=== PATIENT | female | born 1945 | race Caucasian/White ===

== ENCOUNTER 2024-04-02 13:29 | Observation (INO) | payer MEDICARE ==
--- NOTE | 2024-04-02 14:09 | ED ---
General Adult HPI - General Stated complaint: AMS Time Seen by Provider: 04/02/24 13:30 Source: patient, RN notes reviewed, old records reviewed - History of Present Illness Initial comments: This is a 78-year-old female who presents to the emergency room with her son. I had to see the patient in the waiting room because there were no beds available. Patient complained that she has been getting weaker over the last few days son complains that she is getting more altered over the last few days she is getting confused thinks her is at home with her but he is in the hospital. She also was not aware of where they were going. Patient denies any pain patient denies fever chills patient denies nausea vomiting or diarrhea. - Related Data Home Medications Medication Instructions Recorded Confirmed Aspirin EC [Ecotrin] 81 mg PO HS 06/13/13 06/13/13 Benazepril [Lotensin] 10 mg PO HS 06/13/13 06/13/13 Levothyroxine Sodium [Synthroid] 50 mcg PO DAILY 06/13/13 06/13/13 Metoprolol Tartrate [Lopressor] 50 mg PO BID 06/13/13 06/13/13 Pantoprazole Sodium 40 mg PO DAILY 06/13/13 06/13/13 Pravastatin Sodium [Pravachol] 40 mg PO DAILY 06/13/13 06/13/13 Sertraline HCl [Zoloft] 50 mg PO DAILY 06/13/13 06/13/13 Warfarin Sodium [Coumadin] 6 mg PO DAILY 06/13/13 06/13/13 hydroCHLOROthiazide [Hydrodiuril] 25 mg PO BID 06/13/13 06/13/13 Previous Rx's Medication Instructions Recorded Hydrocodone/Acetaminophen [[place] 1 each PO Q6HR PRN #30 tab 06/13/13 5-325] Ibuprofen [Motrin] 600 mg PO Q8HR PRN #30 tab 03/26/24 Allergies Allergy/AdvReac Type Severity Reaction Status Date / Time banana Allergy Swelling Verified 04/02/24 14:15 Sulfa (Sulfonamide Allergy Swelling Verified 04/02/24 14:15 Antibiotics) Review of Systems ROS Statement: Those systems with pertinent positive or pertinent negative responses have been documented in the HPI. ROS Other: All systems not noted in ROS Statement are negative. Past Medical History Past Medical History: Atrial Fibrillation, Hyperlipidemia, Hypertension, Thyroid Disorder Additional Past Medical History / Comment(s): SKIN CANCER History of Any Multi-Drug Resistant Organisms: C-DIFF Date of last positivie culture/infection: unsure MDRO Source:: stool Past Surgical History: Hysterectomy Additional Past Surgical History / Comment(s): THYROIDECTOMY PARTIAL, SKIN CANCER REMOVAL Past Psychological History: No Psychological Hx Reported Smoking Status: Former smoker Past Alcohol Use History: Occasional Past Drug Use History: None Reported General Exam - General Exam Comments Initial Comments: GENERAL: Patient is well-developed and well-nourished. Patient is nontoxic and well- hydrated and is in mild distress. ENT: Neck is soft and supple. No significant lymphadenopathy is noted. Oropharynx is clear. Moist mucous membranes. Neck has full range of motion without eliciting any pain. EYES: The sclera were anicteric and conjunctiva were pink and moist. Extraocular movements were intact and pupils were equal round and reactive to light. Eyelids were unremarkable. PULMONARY: Unlabored respirations. Good breath sounds bilaterally. No audible rales rhonchi or wheezing was noted. CARDIOVASCULAR: There is a regular rate and rhythm without any murmurs gallops or rubs. ABDOMEN: Soft and nontender with normal bowel sounds. SKIN: Skin is clear with no lesions or rashes and otherwise unremarkable. NEUROLOGIC: Patient is alert and oriented x x 2. Cranial nerves II through XII are grossly intact. Motor and sensory are also intact. Normal speech, volume and content. Symmetrical smile. MUSCULOSKELETAL: Normal extremities with adequate strength and full range of motion. LYMPHATICS: No significant lymphadenopathy is noted PSYCHIATRIC: Normal psychiatric evaluation. Course Vital Signs 04/02/24 14:10 Temperature 97.8 F Pulse Rate 95 Respiratory 16 Rate Blood Pressure 148/92 O2 Sat by Pulse 98 Oximetry Medical Decision Making - Medical Decision Making Interpreted by myself. EKG shows atrial fibrillation with rapid ventricular response of 105 bpm QRS is 85 QT interval 339 QTc is 400. Patient's EKG shows no ST segment elevation or depressions Was pt. sent in by a medical professional or institution (, [facility], PATIENT FINANCIAL SERVICES MANAGER, urgent care, hospital, or correction...) When possible be specific @ -No Did you speak to anyone other than the patient for history (EMS, parent, family, police, friend...)? What history was obtained from this source @ -No Did you review nursing and triage notes (agree or disagree)? Why? @ -I reviewed and agree with nursing and triage notes Were old charts reviewed (outside hosp., previous admission, EMS record, old EKG, old radiological studies, urgent care reports/EKG's, correction records)? Report findings @ -No old charts were reviewed Differential Diagnosis? @ -Differential Altered Mental Status: Hypoglycemia, DKA, hypercapnia, ETOH, overdose, CO poisoning, trauma, myxedema coma, HTN encephalopathy, infection, encephalitis, psychosis, intercranial hemorrhage, hepatic encephalopathy, meningitis, CVA, this is not meant to be an all-inclusive list EKG interpreted by me (3pts min.). @ -As above X-rays interpreted by me (1pt min.). @ -Chest x-ray shows no acute CT interpreted by me (1pt min.). @ -CT of the brain shows no acute abnormality U/S interpreted by me (1pt. min.). @ -None done What testing was considered but not performed or refused? (CT, X-rays, U/S, labs)? Why? @ -None What meds were considered but not given or refused? Why? @ -None Did you discuss the management of the patient with other professionals (professionals i.e. , PA, PATIENT FINANCIAL SERVICES MANAGER, lab, RT, psych nurse, social work coordinator, ivory polisher, teacher, ambulance officer, telephonic case manager)? Give summary @ -Spoke with sound physicians agreed to admit the patient Was smoking cessation discussed for >3mins.? @ -No Was critical care preformed (if so, how long)? @ -No Were there social determinants of health that impacted care today? How? (Homelessness, low income, unemployed, alcoholism, drug addiction, transportation, low edu. Level, literacy, decrease access to med. care, custodial, rehab)? @ -No Was there de-escalation of care discussed even if they declined (Discuss DNR or withdrawal of care, Hospice)? DNR status @ -No What co-morbidities impacted this encounter? (DM, HTN, Smoking, COPD, CAD, Cancer, CVA, ARF, Chemo, Hep., AIDS, mental health diagnosis, sleep apnea, morbid obesity)? @ -None Was patient admitted / discharged? Hospital course, mention meds given and route, prescriptions, significant lab abnormalities, going to OR and other pertinent info. @ -Patient continued to be altered in the emergency department and son stated that she would be too unstable at home because she has fallen multiple times her humerus fracture was more displaced than it was previously and I will consult Ortho Undiagnosed new problem with uncertain prognosis? @ -No Drug Therapy requiring intensive monitoring for toxicity (Heparin, Nitro, Insulin, Cardizem)? @ -No Were any procedures done? @ -No Diagnosis/symptom? @ -Altered mental status Acute, or Chronic, or Acute on Chronic? @ -Acute Uncomplicated (without systemic symptoms) or Complicated (systemic symptoms)? @ -Complicated Side effects of treatment? @ -No Exacerbation, Progression, or Severe Exacerbation? @ -No Poses a threat to life or bodily function? How? (Chest pain, [place], [place], pneumonia, PE, COPD, DKA, ARF, appy, cholecystitis, CVA, Diverticulitis, Homicidal, Suicidal, threat to staff... and all critical care pts) @ -Yes if patient were discharged home she could continue to fall and cause significant injury Diagnosis/symptom? @ -Humerus fracture Acute, or Chronic, or Acute on Chronic? @ -Acute Uncomplicated (without systemic symptoms) or Complicated (systemic symptoms)? @ -Default Side effects of treatment? @ -None Exacerbation, Progression, or Severe Exacerbation] @ -No Poses a threat to life or bodily function? @ -No - Lab Data Result diagrams: 04/02/24 14:32 04/02/24 14:32 Lab Results 04/02/24 04/02/24 04/02/24 Range/Units 14:32 14:32 14:32 WBC 8.2 (3.8-10.6) k/uL RBC 3.08 L (3.80-5.40) m/uL Hgb 10.4 L (11.4-16.0) gm/dL Hct 32.1 L (34.0-46.0) % MCV 104.1 H (80.0-100.0) fL MCH 33.7 (25.0-35.0) pg MCHC 32.3 (31.0-37.0) g/dL RDW 15.2 (11.5-15.5) % Plt Count 385 (150-450) k/uL MPV 8.0 Neutrophils % 83 % Lymphocytes % 10 % Monocytes % 4 % Eosinophils % 2 % Basophils % 0 % Neutrophils # 6.8 (1.3-7.7) k/uL Lymphocytes # 0.8 L (1.0-4.8) k/uL Monocytes # 0.3 (0-1.0) k/uL Eosinophils # 0.2 (0-0.7) k/uL Basophils # 0.0 (0-0.2) k/uL Hypochromasia Slight Macrocytosis Moderate PT 12.9 H (10.0-12.5) sec INR 1.2 H (<1.2) APTT 25.2 (22.0-30.0) sec Sodium 140 (137-145) mmol/L Potassium 4.4 (3.5-5.1) mmol/L Chloride 107 (98-107) mmol/L Carbon Dioxide 22 (22-30) mmol/L Anion Gap 11 mmol/L BUN 37 H (7-17) mg/dL Creatinine 0.87 (0.52-1.04) mg/dL Est GFR (CKD-EPI)AfAm 74 (>60 ml/min/1.73 sqM) Est GFR (CKD-EPI)NonAf 64 (>60 ml/min/1.73 sqM) Glucose 95 (74-99) mg/dL Calcium 9.3 (8.4-10.2) mg/dL Total Bilirubin 1.8 H (0.2-1.3) mg/dL AST 29 (14-36) U/L ALT 16 (4-34) U/L Alkaline Phosphatase 90 (38-126) U/L Troponin I (0.000-0.034) ng/mL Total Protein 6.4 (6.3-8.2) g/dL Albumin 4.1 (3.5-5.0) g/dL Urine Color Urine Appearance (Clear) Urine pH (5.0-8.0) Ur Specific [place] (1.001-1.035) Urine Protein (Negative) Urine Glucose (UA) (Negative) Urine Ketones (Negative) Urine Blood (Negative) Urine Nitrite (Negative) Urine Bilirubin (Negative) Urine Urobilinogen (<2.0) mg/dL Ur Leukocyte Esterase (Negative) Urine RBC (0-5) /hpf Urine WBC (0-5) /hpf Ur Squamous Epith Cells (0-4) /hpf Urine Mucus (None) /hpf Urine Opiates Screen (NotDetected) Ur Oxycodone Screen (NotDetected) Urine Methadone Screen (NotDetected) Ur Barbiturates Screen (NotDetected) U Tricyclic Antidepress (NotDetected) Ur Phencyclidine Scrn (NotDetected) Ur Amphetamines Screen (NotDetected) U Methamphetamines Scrn (NotDetected) U Benzodiazepines Scrn (NotDetected) Urine Cocaine Screen (NotDetected) U Marijuana (THC) Screen (NotDetected) Influenza Type A (PCR) (Not Detectd) Influenza Type B (PCR) (Not Detectd) RSV (PCR) (Not Detectd) SARS-CoV-2 (PCR) (Not Detectd) 04/02/24 04/02/24 04/02/24 Range/Units 14:32 14:32 16:15 WBC (3.8-10.6) k/uL RBC (3.80-5.40) m/uL Hgb (11.4-16.0) gm/dL Hct (34.0-46.0) % MCV (80.0-100.0) fL MCH (25.0-35.0) pg MCHC (31.0-37.0) g/dL RDW (11.5-15.5) % Plt Count (150-450) k/uL MPV Neutrophils % % Lymphocytes % % Monocytes % % Eosinophils % % Basophils % % Neutrophils # (1.3-7.7) k/uL Lymphocytes # (1.0-4.8) k/uL Monocytes # (0-1.0) k/uL Eosinophils # (0-0.7) k/uL Basophils # (0-0.2) k/uL Hypochromasia Macrocytosis PT (10.0-12.5) sec INR (<1.2) APTT (22.0-30.0) sec Sodium (137-145) mmol/L Potassium (3.5-5.1) mmol/L Chloride (98-107) mmol/L Carbon Dioxide (22-30) mmol/L Anion Gap mmol/L BUN (7-17) mg/dL Creatinine (0.52-1.04) mg/dL Est GFR (CKD-EPI)AfAm (>60 ml/min/1.73 sqM) Est GFR (CKD-EPI)NonAf (>60 ml/min/1.73 sqM) Glucose (74-99) mg/dL Calcium (8.4-10.2) mg/dL Total Bilirubin (0.2-1.3) mg/dL AST (14-36) U/L ALT (4-34) U/L Alkaline Phosphatase (38-126) U/L Troponin I <0.012 (0.000-0.034) ng/mL Total Protein (6.3-8.2) g/dL Albumin (3.5-5.0) g/dL Urine Color Yellow Urine Appearance Clear (Clear) Urine pH 5.5 (5.0-8.0) Ur Specific [place] 1.031 (1.001-1.035) Urine Protein 1+ H (Negative) Urine Glucose (UA) Negative (Negative) Urine Ketones Negative (Negative) Urine Blood Negative (Negative) Urine Nitrite Negative (Negative) Urine Bilirubin Negative (Negative) Urine Urobilinogen <2.0 (<2.0) mg/dL Ur Leukocyte Esterase Negative (Negative) Urine RBC 3 (0-5) /hpf Urine WBC 2 (0-5) /hpf Ur Squamous Epith Cells 1 (0-4) /hpf Urine Mucus Rare H (None) /hpf Urine Opiates Screen Not Detected (NotDetected) Ur Oxycodone Screen Not Detected (NotDetected) Urine Methadone Screen Not Detected (NotDetected) Ur Barbiturates Screen Not Detected (NotDetected) U Tricyclic Antidepress Not Detected (NotDetected) Ur Phencyclidine Scrn Not Detected (NotDetected) Ur Amphetamines Screen Not Detected (NotDetected) U Methamphetamines Scrn Not Detected (NotDetected) U Benzodiazepines Scrn Not Detected (NotDetected) Urine Cocaine Screen Not Detected (NotDetected) U Marijuana (THC) Screen Not Detected (NotDetected) Influenza Type A (PCR) Not Detected (Not Detectd) Influenza Type B (PCR) Not Detected (Not Detectd) RSV (PCR) Not Detected (Not Detectd) SARS-CoV-2 (PCR) Not Detected (Not Detectd) Disposition Clinical Impression: Altered mental status, Humerus fracture Disposition: ADMITTED IP TO THIS HOSP Referrals: Bryan Cavazos MD [Primary Care Provider] - 1-2 days Time of Disposition: 19:32
--- NOTE | 2024-04-02 15:03 | XR ---
EXAMINATION TYPE: XR chest 2V DATE OF EXAM: 04/02/2024 2:57 PM COMPARISON: Chest radiographs from 04/15/2013, right humerus/scapula radiograph 03/21/2024, TECHNIQUE: XR chest 2V Frontal and lateral views of the chest. CLINICAL INDICATION:Female, 78 years old with history of altered mental status; FINDINGS: Lungs/Pleura: There is no evidence of pleural effusion, focal consolidation, or pneumothorax. Linear atelectasis within the left lower lung. Pulmonary vascularity: Unremarkable. Heart/mediastinum: Cardiomediastinal silhouette is enlarged and stable. Musculoskeletal: Anterior wedge compression deformity of the lower thoracic spine. Increased displace ment of known right proximal humeral surgical neck fracture with extension to the greater tuberosity. IMPRESSION: 1. No acute cardiopulmonary disease/process. 2. Age-indeterminate anterior wedge compression deformity of the lower thoracic spine. Correlate wit h point tenderness. 3. Increased displacement of known right proximal humeral surgical neck fracture. [facility], , 04/02/2024 3:01 PM
[2024-04-02 15:11] LABS: Basophils % (A) 0 %; Eosinophils # (A) 0.2 k/uL (0-0.7); Eosinophils % (A) 2 %; HCT 32.1 % (34.0-46.0); HGB 10.4 gm/dL (11.4-16.0); Hypochromasia Slight; Lymphocytes # (A) 0.8 k/uL (1.0-4.8); Lymphocytes % (A) 10 %; MCH 33.7 pg (25.0-35.0); MCHC 32.3 g/dL (31.0-37.0); MCV 104.1 fL (80.0-100.0); Macrocytosis Moderate; Monocytes # (A) 0.3 k/uL (0-1.0); Monocytes % (A) 4 %; Neutrophils # (A) 6.8 k/uL (1.3-7.7); Neutrophils % (A) 83 %; Platelet Count 385 k/uL (150-450); RBC 3.08 m/uL (3.80-5.40); RDW 15.2 % (11.5-15.5); WBC 8.2 k/uL (3.8-10.6)
[2024-04-02 15:20] LABS: ALT 16 U/L (4-34); AST 29 U/L (14-36); African American GFR (CKD) 74 (>60 ml/min/1.73 sqM); Albumin 4.1 g/dL (3.5-5.0); Alkaline Phosphatase 90 U/L (38-126); Anion Gap 11 mmol/L; Blood Urea Nitrogen 37 mg/dL (7-17); Calcium 9.3 mg/dL (8.4-10.2); Carbon Dioxide 22 mmol/L (22-30); Chloride 107 mmol/L (98-107); Glucose 95 mg/dL (74-99); Non-African American GFR(CKD) 64 (>60 ml/min/1.73 sqM); Potassium 4.4 mmol/L (3.5-5.1); Sodium 140 mmol/L (137-145); Total Bilirubin 1.8 mg/dL (0.2-1.3); Total Protein 6.4 g/dL (6.3-8.2)
[2024-04-02 15:21] LABS: INR 1.2 (<1.2); Partial Thromboplastin Time 25.2 sec (22.0-30.0); Prothrombin Time 12.9 sec (10.0-12.5)
[2024-04-02 15:45] LABS: Influenza A Not Detected (Not Detectd); Influenza B Not Detected (Not Detectd); RSV Not Detected (Not Detectd)
[2024-04-02] MEDS: SODIUM CHLORIDE 0.9% 1,000 ML IV ONE ×2 (16:33→20:12)
[2024-04-02 17:01] LABS: Appearance,Urine Clear (Clear); Bilirubin,Urine Negative (Negative); Blood,Urine Negative (Negative); Color,Urine Yellow; Glucose,Urine (UA) Negative (Negative); Ketones,Urine Negative (Negative); Leukocyte Esterase,Urine Negative (Negative); Mucus,Urine Rare /hpf; Nitrite,Urine Negative (Negative); PH, Urine 5.5 (5.0-8.0); Protein,Urine 1+ (Negative); RBC,Urine 3 /hpf (0-5); Specific Gravity,Urine 1.031 (1.001-1.035); Squamous Epithelial Cell,Urine 1 /hpf (0-4); Urobilinogen,Urine <2.0 mg/dL (<2.0); WBC,Urine 2 /hpf (0-5)
[2024-04-02 17:07] LABS: Amphetamine Screen,Urine Not Detected (NotDetected); Barbiturate Screen,Urine Not Detected (NotDetected); Benzodiazepines Screen,Urine Not Detected (NotDetected); Cocaine Screen,Urine Not Detected (NotDetected); Methadone Screen, Urine Not Detected (NotDetected); Opiate Screen,Urine Not Detected (NotDetected); Oxycodone Screen, Urine Not Detected (NotDetected); Phencyclidine Screen,Urine Not Detected (NotDetected); Tricyclic Antidepressant,Urine Not Detected (NotDetected); Urn Cannabinoid Scrn Not Detected (NotDetected)
--- NOTE | 2024-04-02 19:07 | CT ---
EXAMINATION TYPE: CT brain wo con DATE OF EXAM: 04/02/2024 6:48 PM COMPARISON: None. CLINICAL INDICATION: Female, 78 years old with history of Altered mental status, weakness, ams, recen t fall TECHNIQUE: Brain: Axial CT images of the brain were obtained with coronal and sagittal reformats created and rev iewed. Contrast used: None. Oral contrast used: None. CT DLP: 1096.4 mGycm, Automated exposure control for dose reduction was used. FINDINGS: Brain: Extra-axial spaces: No abnormal extra-axial fluid collections. Ventricular system: Within normal limits Cerebral parenchyma: No acute intraparenchymal hemorrhage or mass effect. The wilson-white junction is well differentiated. Cerebellum: Unremarkable. Mass effect: No evidence of midline shift. Intracranial vasculature: unremarkable Soft tissues: Normal. Calvarium/osseous structures: No depressed skull fracture. Paranasal sinuses and mastoid air cells: Mild scattered paranasal sinus disease. Visualized orbits: Orbital contents are intact. There is subcutaneous gas in the head myofascial planes of the left head head and anterior face. No f racture definitely visualized in the [id number]. IMPRESSION: 1. No acute intracranial process. 2. Soft tissue subcutaneous gas throughout the head most pronounced on the left. Etiology unclear no fracture definitely visualized in the [id number]. [facility], , 04/02/2024 7:05 PM
[2024-04-02 22:10] LABS: African American GFR (CKD) >90 (>60 ml/min/1.73 sqM); Anion Gap 11 mmol/L; Blood Urea Nitrogen 31 mg/dL (7-17); Calcium 9.4 mg/dL (8.4-10.2); Carbon Dioxide 16 mmol/L (22-30); Chloride 114 mmol/L (98-107); Glucose 83 mg/dL (74-99); Non-African American GFR(CKD) 84 (>60 ml/min/1.73 sqM); Potassium 5.3 mmol/L (3.5-5.1); Sodium 141 mmol/L (137-145)
[2024-04-02] MEDS ORDERED: NALOXONE 0.4 MG/ML 1 ML VIAL IVP PRN (23:19)
--- NOTE | 2024-04-02 23:27 | P.HPIM ---
History of Present Illness H&P Date: 04/02/24 Patient is a 78-year-old female with of A-fib (on rivaroxaban), hyperlipidemia, hypertension, thyroid disorder here for increased weakness. Patient arrived with her son but is not at bedside during evaluation. She was recently in the emergency room on 03/22 for right humeral fracture. Per bell staff, patient's son brought the patient in due to increasing frequency of falls, confusion and weakness. They also reported that is intermittently confused. Patient was able to report that a week ago she fell on her hip and it was unwitnessed but she did not hit her head. She did not seek care at the time as her pain did not have any pain or swelling. Patient was able to mention that she had a right arm injury because she fell and had a fracture. She is still wearing the sling on admission and reports that she is very much in pain that she cannot move the arm. She believes she is here because of generalized weakness. She denied fever, chills, nausea, vomiting, diarrhea, loss of consciousness, headache, changes in vision, congestion, runny nose, cough, shortness of breath, chest pain, palpitations, focal weakness, facial asymmetry, changes in speech, changes in urination, recent bleeding, recent illness, recent travel. Social history: Tobacco: Former smoker. Quit 30 years ago Alcohol: Occasional alcohol use Recreational drugs: No illicit or recreational drug history Chest x-ray on admission showed no acute cardiopulmonary process, age- indeterminate anterior wedge compression deformity of the lower thoracic spine, increased displacement of known right proximal humeral surgical neck fracture. EKG showed atrial fibrillation with a rate of [address]-T changes QTc 400. Brain CT showed no acute intracranial process, soft tissue subcutaneous gas throughout the head was pronounced on the left etiology unclear.. Labs on evaluation showed WBC 8.2, hemoglobin 10.4, MCV 104, platelet count 385,000, PT 12.9, INR 1.2, PTT 25.2, sodium 140, potassium 4.4, chloride 107, bicarb 22, BUN 37, creatinine 0.87, glucose 95, calcium 9.3, total bilirubin 1.8, AST 29, ALT 16, alk phos 90, troponin less than 0.0 12, albumin 4.1. Urinalysis shows +1 protein and rare mucus. UDS negative. Cepheid 4 negative. Vitals on admission temperature 97.8 pulse rate 95 respiratory rate 16 blood pressure 148/92 O2 saturation 98% ED documentation reviewed and case discussed with ED provider. 0.9 normal saline bolus given in the ED Review of systems: Pertinent positives and negatives as discussed in HPI, a complete review of systems was performed and all other systems are negative. Physical examination: Vital signs reviewed General: non toxic, mild distress, appears at stated age, Derm: no unusual rashes/lesions, warm, bruising noted on left hip and right arm up to the shoulder from the hands Head: atraumatic, normocephalic, symmetric Eyes: EOMI, anicteric sclera, pupils equal round reactive to light ENT: Nose and ears atraumatic Neck: No cervical lymphadenopathy, trachea midline, supple Mouth: no lip lesion, mucus membranes moist Cardiovascular: S1S2 reg, no murmur Lungs: CTA bilateral, no rhonchi, no rales, no accessory muscle use Abdominal: soft, nondistended, nontender to palpation, no guarding Ext: muscle strength 5 out of 5 in distal and proximal bilateral lower extremities and left upper extremity grossly, no gross muscle atrophy, no contractures, positive dorsalis pedis pulse bilateral, +2 bilateral pitting edema, right arm placed in a sling range of motion limited by pain Neuro: CN II-XI grossly intact, no gross focal neuro deficits Psych: Alert and oriented x 3, appropriate affect and mood Assessment/Plan: 78-year-old female with altered mental status #. Acute encephalopathy, rule out other causes #. Debility -Brain CT showed no acute intracranial process, soft tissue subcutaneous gas throughout the head was pronounced on the left etiology unclear. -Chest x-ray on admission showed no acute cardiopulmonary process, age- indeterminate anterior wedge compression deformity of the lower thoracic spine, increased displacement of known right proximal humeral surgical neck fracture. -Glucose 95. UDS negative. Cepheid 4 negative. -Echocardiogram -Check TSH -Neurochecks -Fall precautions -Cardiac telemetry - PT/OT consult -monitor BMP #. A-fib with RVR -EKG showed atrial fibrillation with a rate of [address]-T changes QTc 400. -Resume home rivaroxaban -Initiate home Lopressor 50 p.o. twice daily -Cardiac telemetry #. Macrocytic anemia -Hemoglobin 10.4, MCV 104 -Check B12 and folate levels -Monitor CBC #. Right humeral neck fracture -Last seen on 03/22 for right humeral neck fracture in the ED. Proximal humeral fracture noted on humerus x-ray of the right showing partially nondisplaced fracture of surgical neck right humerus with extension into the region of the greater tuberosity. -Pain control as needed -Ortho consulted #. Right hip pain -Hip CT of the left on 03/26/2024 showed prominent soft tissue swelling and bruising along the left hip, oval high density area seen within the posterior gluteal musculature suggestive of an intramuscular hematoma and to recommended for clinical follow-up, mild left osteoarthritis, no acute osseous abnormality seen -Hip x-ray of the left showed no acute fracture or dislocation -Pain control as needed -Will monitor for now Chronic Conditions: #. Hyperlipidemia #. Hypertension #. Thyroid disorder #. Chronic leg swelling -Resume all home medications once reconciled DVT ppx: Rivaroxaban 20 mg p.o. daily GI ppx: Not indicated Dispo: The patient is admitted with an anticipated greater than 2 midnight stay for evaluation of altered mental status Discussed with: Patient Anticipated discharge place: Home Andreea Hyman MD PGY-1 IM Dictation was produced using [employer] dictation software. please excuse any grammatical, word or spelling errors. I have seen and evaluated the patient today. I Discussed the case with the resident and agree with the resident's findings I edited the assessment and plan as necessary as documented in the resident's note. Past Medical History Past Medical History: Atrial Fibrillation, Hyperlipidemia, Hypertension, Thyroid Disorder Additional Past Medical History / Comment(s): SKIN CANCER History of Any Multi-Drug Resistant Organisms: C-DIFF Date of last positivie culture/infection: unsure MDRO Source:: stool Past Surgical History: Hysterectomy Additional Past Surgical History / Comment(s): THYROIDECTOMY PARTIAL, SKIN CANCER REMOVAL Past Psychological History: No Psychological Hx Reported Smoking Status: Former smoker Past Alcohol Use History: Occasional Past Drug Use History: None Reported Medications and Allergies Home Medications Medication Instructions Recorded Confirmed Type Metoprolol Tartrate [Lopressor] 50 mg PO BID 06/13/13 04/02/24 History Ibuprofen [Motrin] 600 mg PO Q8HR PRN 04/02/24 04/02/24 History Levothyroxine Sodium [Synthroid] 88 mcg PO DAILY 04/02/24 04/02/24 History Rivaroxaban [Xarelto] 20 mg PO DAILY 04/02/24 04/02/24 History Sertraline (Unknown Strength) 100 mg PO DAILY 04/02/24 04/02/24 History Spironolactone [Aldactone] 25 mg PO DAILY 04/02/24 04/02/24 History Allergies Allergy/AdvReac Type Severity Reaction Status Date / Time banana Allergy Swelling Verified 04/02/24 19:54 Sulfa (Sulfonamide Allergy Swelling Verified 04/02/24 19:54 Antibiotics) Physical Exam Vitals: Vital Signs Temp Pulse Resp BP Pulse Ox 04/02/24 14:10 97.8 F 95 16 148/92 98 Intake and Output 04/02/24 04/02/24 04/02/24 06:59 14:59 22:59 Other: Weight 68.492 kg Results CBC & Chem 7: 04/03/24 03:19 04/03/24 03:19 Labs: Abnormal Lab Results - Last 24 Hours (Table) 04/02/24 04/02/24 04/02/24 Range/Units 14:32 14:32 14:32 RBC 3.08 L (3.80-5.40) m/uL Hgb 10.4 L (11.4-16.0) gm/dL Hct 32.1 L (34.0-46.0) % MCV 104.1 H (80.0-100.0) fL Lymphocytes # 0.8 L (1.0-4.8) k/uL PT 12.9 H (10.0-12.5) sec INR 1.2 H (<1.2) BUN 37 H (7-17) mg/dL Total Bilirubin 1.8 H (0.2-1.3) mg/dL Urine Protein (Negative) Urine Mucus (None) /hpf 04/02/24 Range/Units 16:15 RBC (3.80-5.40) m/uL Hgb (11.4-16.0) gm/dL Hct (34.0-46.0) % MCV (80.0-100.0) fL Lymphocytes # (1.0-4.8) k/uL PT (10.0-12.5) sec INR (<1.2) BUN (7-17) mg/dL Total Bilirubin (0.2-1.3) mg/dL Urine Protein 1+ H (Negative) Urine Mucus Rare H (None) /hpf
[2024-04-03] MEDS: METOPROLOL TARTRATE 50 MG TAB PO SCH (00:03)
[2024-04-03] MEDS: ACETAMINOPHEN TAB 325 MG TAB PO PRN (00:03)
[2024-04-03 03:58] LABS: African American GFR (CKD) 86 (>60 ml/min/1.73 sqM); Anion Gap 9 mmol/L; Blood Urea Nitrogen 32 mg/dL (7-17); Calcium 9.1 mg/dL (8.4-10.2); Carbon Dioxide 22 mmol/L (22-30); Chloride 109 mmol/L (98-107); Glucose 131 mg/dL (74-99); Non-African American GFR(CKD) 74 (>60 ml/min/1.73 sqM); Potassium 3.9 mmol/L (3.5-5.1); Sodium 140 mmol/L (137-145)
[2024-04-03 04:24] LABS: Basophils % (A) 0 %; Eosinophils # (A) 0.1 k/uL (0-0.7); Eosinophils % (A) 2 %; HCT 30.5 % (34.0-46.0); HGB 9.9 gm/dL (11.4-16.0); Hypochromasia Slight; Lymphocytes # (A) 0.7 k/uL (1.0-4.8); Lymphocytes % (A) 9 %; MCH 33.5 pg (25.0-35.0); MCHC 32.5 g/dL (31.0-37.0); MCV 103.1 fL (80.0-100.0); Macrocytosis Moderate; Mean Platelet Volume 8.3; Monocytes # (A) 0.3 k/uL (0-1.0); Monocytes % (A) 4 %; Neutrophils # (A) 6.8 k/uL (1.3-7.7); Neutrophils % (A) 84 %; Platelet Count 357 k/uL (150-450); RBC 2.96 m/uL (3.80-5.40); RDW 15.8 % (11.5-15.5)
[2024-04-03] MEDS: LEVOTHYROXINE 88 MCG TAB PO SCH (05:46)
[2024-04-03] MEDS: SERTRALINE 100 MG TAB PO SCH (10:25)
[2024-04-03] MEDS: SPIRONOLACTONE 25 MG TAB PO SCH (10:29)
[2024-04-03] MEDS: MORPHINE SULFATE 4 MG/ML SYRINGE IVP PRN (10:34)
--- NOTE | 2024-04-03 10:57 | P.CNOR ---
History of Present Illness - HPI Consult date: 04/03/24 History of present illness: This is a 78-year-old female who is admitted for altered mental status and multiple falls. Orthopedics is consulted due to a right humerus fracture. Patient is seen and evaluated at bedside today. Patient states that she fractured her right shoulder 1 or 2 weeks ago after a fall at home. Patient states that she has had several falls recently. Patient was seen in the emergency room on 03/21/2024 and humerus x-rays revealed a proximal right humerus fracture. Patient complains of right wrist pain today. Patient states that she has been utilizing her arm sling and she denies any numbness, weakness or tingling. Patient's past medical history significant for atrial fibrillation, hyperlipidemia, hypertension and a thyroid disorder. Review of Systems See HPI. Past Medical History Past Medical History: Atrial Fibrillation, Hyperlipidemia, Hypertension, Thyroid Disorder Additional Past Medical History / Comment(s): SKIN CANCER History of Any Multi-Drug Resistant Organisms: C-DIFF Year Discovered:: unsure MDRO Source:: stool Past Surgical History: Hysterectomy Additional Past Surgical History / Comment(s): THYROIDECTOMY PARTIAL, SKIN CANC ER REMOVAL Past Anesthesia/Blood Transfusion Reactions: No Reported Reaction Past Psychological History: No Psychological Hx Reported Smoking Status: Former smoker Past Alcohol Use History: Occasional Past Drug Use History: None Reported Medications and Allergies Home Medications Medication Instructions Recorded Confirmed Type Metoprolol Tartrate [Lopressor] 50 mg PO BID 06/13/13 04/02/24 History Ibuprofen [Motrin] 600 mg PO Q8HR PRN 04/02/24 04/02/24 History Levothyroxine Sodium [Synthroid] 88 mcg PO DAILY 04/02/24 04/02/24 History Rivaroxaban [Xarelto] 20 mg PO DAILY 04/02/24 04/02/24 History Sertraline (Unknown Strength) 100 mg PO DAILY 04/02/24 04/02/24 History Spironolactone [Aldactone] 25 mg PO DAILY 04/02/24 04/02/24 History Allergies Allergy/AdvReac Type Severity Reaction Status Date / Time banana Allergy Swelling Verified 04/02/24 19:54 Sulfa (Sulfonamide Allergy Swelling Verified 04/02/24 19:54 Antibiotics) Physical Examination On exam patient is resting comfortably in bed in no acute distress. Patient is alert and oriented 3. Right upper extremity: Skin is intact. There is ecchymosis present over the right upper arm extending to the hand. There is mild to moderate swelling of the right shoulder. Patient has tenderness to palpation over the right shoulder and over the right wrist. Patient has full motion of the right hand and some discomfort with wrist motion. Radial pulse is 2+. Capillary refill is normal at less than 2 seconds. The right upper extremity is warm and well-perfused. Sensation intact. Neurovascular status and circulatory status are intact. Results X-rays of the right shoulder dated 04/03/2024 show a stable proximal humerus fracture. X-rays of the right wrist are pending. - Labs Labs: Abnormal Lab Results - Last 24 Hours (Table) 04/02/24 04/02/24 04/02/24 Range/Units 14:32 14:32 14:32 RBC 3.08 L (3.80-5.40) m/uL Hgb 10.4 L (11.4-16.0) gm/dL Hct 32.1 L (34.0-46.0) % MCV 104.1 H (80.0-100.0) fL RDW (11.5-15.5) % Lymphocytes # 0.8 L (1.0-4.8) k/uL PT 12.9 H (10.0-12.5) sec INR 1.2 H (<1.2) Potassium (3.5-5.1) mmol/L Chloride (98-107) mmol/L Carbon Dioxide (22-30) mmol/L BUN 37 H (7-17) mg/dL Glucose (74-99) mg/dL Total Bilirubin 1.8 H (0.2-1.3) mg/dL Urine Protein (Negative) Urine Mucus (None) /hpf 04/02/24 04/02/24 04/03/24 Range/Units 16:15 21:08 03:19 RBC 2.96 L (3.80-5.40) m/uL Hgb 9.9 L (11.4-16.0) gm/dL Hct 30.5 L (34.0-46.0) % MCV 103.1 H (80.0-100.0) fL RDW 15.8 H (11.5-15.5) % Lymphocytes # 0.7 L (1.0-4.8) k/uL PT (10.0-12.5) sec INR (<1.2) Potassium 5.3 H (3.5-5.1) mmol/L Chloride 114 H (98-107) mmol/L Carbon Dioxide 16 L (22-30) mmol/L BUN 31 H (7-17) mg/dL Glucose (74-99) mg/dL Total Bilirubin (0.2-1.3) mg/dL Urine Protein 1+ H (Negative) Urine Mucus Rare H (None) /hpf 04/03/24 Range/Units 03:19 RBC (3.80-5.40) m/uL Hgb (11.4-16.0) gm/dL Hct (34.0-46.0) % MCV (80.0-100.0) fL RDW (11.5-15.5) % Lymphocytes # (1.0-4.8) k/uL PT (10.0-12.5) sec INR (<1.2) Potassium (3.5-5.1) mmol/L Chloride 109 H (98-107) mmol/L Carbon Dioxide (22-30) mmol/L BUN 32 H (7-17) mg/dL Glucose 131 H (74-99) mg/dL Total Bilirubin (0.2-1.3) mg/dL Urine Protein (Negative) Urine Mucus (None) /hpf H & H 04/02/24 04/03/24 Range/Units 14:32 03:19 Hgb 10.4 L 9.9 L (11.4-16.0) gm/dL Hct 32.1 L 30.5 L (34.0-46.0) % Coagulation 04/02/24 Range/Units 14:32 INR 1.2 H (<1.2) Result Diagrams: 04/03/24 03:19 04/03/24 03:19 Assessment and Plan (1) Closed fracture of right proximal humerus Current Visit: Yes Status: Acute Code(s): S42.201A - UNSP FRACTURE OF UPPER END OF RIGHT HUMERUS, INIT SNOMED Code(s): 34707143 (2) Fall Current Visit: No Status: Acute Code(s): W19.XXXA - UNSPECIFIED FALL, INITIAL ENCOUNTER SNOMED Code(s): 8713583 Plan: 1. Maintain arm sling to the right upper extremity. Ice as needed for swelling. Patient is to remain nonweightbearing to the right upper extremity. 2. Continue pain control. 3. X-rays of the right wrist are pending. 4. There is no surgical indication. Continue with conservative management. We will continue to follow.
--- NOTE | 2024-04-03 10:58 | XR ---
EXAMINATION TYPE: XR shoulder limited RT DATE OF EXAM: 04/03/2024 10:32 AM COMPARISON: None. CLINICAL INDICATION: Female, 78 years old with history of fracture, pain TECHNIQUE: 2 view(s) obtained. FINDINGS: The surgical neck fracture is not as well-visualized on the current examination. Greater tuberosity f racture however is evident. Humeral head articulates with the glenoid. Downward sloping acromion is n oted. IMPRESSION: 1. Persistent fracture at the greater tuberosity and surgical neck of the humerus. [facility], , 04/03/2024 10:56 AM
--- NOTE | 2024-04-03 13:00 | XR ---
EXAMINATION TYPE: XR wrist limited RT DATE OF EXAM: 04/03/2024 12:32 PM COMPARISON: Right hand 06/13/2013 CLINICAL INDICATION: Female, 78 years old with history of pain, pain TECHNIQUE: 2 view(s) obtained. FINDINGS: No acute fracture or dislocation evident. Joint spaces appear preserved. Some soft tissue swelling ma y be over the dorsum of the wrist. Follow up exams can be performed as clinically indicated There is pain at the anatomic snuff box, nuclear medicine bone scan could be performed for additional evaluation. IMPRESSION: 1. No acute osseous abnormality right wrist 2. Soft tissue swelling right wrist [facility], , 04/03/2024 12:58 PM
[2024-04-03] MEDS: RIVAROXABAN 20 MG TAB PO SCH (16:44)
--- NOTE | 2024-04-03 18:05 | P.PN ---
Subjective Progress Note Date: 04/03/24 78-year-old female with of A-fib (on rivaroxaban), hyperlipidemia, hypertension, thyroid disorder here for increased weakness. Patient arrived with her son but is not at bedside during evaluation. She was recently in the emergency room on 03/22 for right humeral fracture. Per staff command and control officer, patient's son brought the patient in due to increasing frequency of falls, confusion and weakness. They also reported that is intermittently confused. Patient was able to report that a week ago she fell on her hip and it was unwitnessed but she did not hit her head. She did not seek care at the time as her pain did not have any pain or swelling. Patient was able to mention that she had a right arm injury because she fell and had a fracture. She is still wearing the sling on admission and reports that she is very much in pain that she cannot move the arm. She believes she is here because of generalized weakness. In the ED she underwent extensive evaluation. Chest x-ray on admission showed no acute cardiopulmonary process, age- indeterminate anterior wedge compression deformity of the lower thoracic spine, increased displacement of known right proximal humeral surgical neck fracture. EKG showed atrial fibrillation with a rate of [address]-T changes QTc 400. Brain CT showed no acute intracranial process, soft tissue subcutaneous gas throughout the head was pronounced on the left etiology unclear.. Labs on evaluation showed WBC 8.2, hemoglobin 10.4, MCV 104, platelet count 385,000, PT 12.9, INR 1.2, PTT 25.2, sodium 140, potassium 4.4, chloride 107, bicarb 22, BUN 37, creatinine 0.87, glucose 95, calcium 9.3, total bilirubin 1.8, AST 29, ALT 16, alk phos 90, troponin less than 0.0 12, albumin 4.1. Urinalysis shows +1 protein and rare mucus. UDS negative. Cepheid 4 negative. Vitals on admission temperature 97.8 pulse rate 95 respiratory rate 16 blood pressure 148/92 O2 saturation 98% Patient was admitted for further workup and management. 04/03 Patient was seen and examined. Apparently AO x 4 this morning but got confused after receiving Morphine. Ortho recommends no surgical intervention. CBC and BMP significant for RBC 2.96, Hg 9.9, Hct 30.5, MCV 103.1, Cl 109, BUN 32, glu 131. B12 642. TSH 3.55. Vital signs reviewed General: non toxic, mild distress, appears at stated age, Derm: bruising noted on left hip and right arm up to the shoulder from the hands Head: atraumatic, normocephalic, symmetric Eyes: EOMI, anicteric sclera ENT: Nose and ears atraumatic Neck: No cervical lymphadenopathy, trachea midline, supple Mouth: no lip lesion, mucus membranes moist Cardiovascular: S1S2 reg, no murmur Lungs: CTA bilateral, no rhonchi, no rales, no accessory muscle use Ext: +2 bilateral pitting edema, right arm placed in a sling range of motion limited by pain Neuro: no gross focal neuro deficits Psych: Alert and oriented x 3, appropriate affect and mood #. Acute encephalopathy, rule out other causes #. Debility -Brain CT showed no acute intracranial process, soft tissue subcutaneous gas throughout the head was pronounced on the left etiology unclear. -Chest x-ray on admission showed no acute cardiopulmonary process, age- indeterminate anterior wedge compression deformity of the lower thoracic spine, increased displacement of known right proximal humeral surgical neck fracture. -Glucose 95. UDS negative. Cepheid 4 negative. -TSH and B12 within normal limits, Folate pending -Neurochecks -Fall precautions -Cardiac telemetry -PT/OT consult #. A-fib with RVR -EKG showed atrial fibrillation with a rate of [address]-T changes QTc 400. -Resume home rivaroxaban -Initiate home Lopressor 50 p.o. twice daily -Cardiac telemetry #. Macrocytic anemia -Hemoglobin 9.9, MCV 103.1 -TSH and B12 within normal limits, Folate pending -Monitor CBC #. Right humeral neck fracture -Last seen on 03/22 for right humeral neck fracture in the ED. Proximal humeral fracture noted on humerus x-ray of the right showing partially nondisplaced fracture of surgical neck right humerus with extension into the region of the greater tuberosity. -Pain control as needed -Ortho consulted, conservative management recommended #. Right hip pain -Hip CT of the left on 03/26/2024 showed prominent soft tissue swelling and bruising along the left hip, oval high density area seen within the posterior gluteal musculature suggestive of an intramuscular hematoma and to recommended for clinical follow-up, mild left osteoarthritis, no acute osseous abnormality seen -Hip x-ray of the left showed no acute fracture or dislocation -Pain control as needed -Will monitor for now Chronic Conditions: #. Hyperlipidemia #. Hypertension #. Thyroid disorder #. Chronic leg swelling -Resume home medications DVT ppx: Rivaroxaban 20 mg p.o. daily GI ppx: Not indicated Dispo: SNF. Case management, PT/OT on board. Objective - Vital Signs Vital signs: Vital Signs Temp 97.6 F 04/03/24 13:23 Pulse 105 H 04/03/24 13:23 Resp 16 04/03/24 13:23 BP 135/89 04/03/24 13:23 Pulse Ox 93 L 04/03/24 13:23 FiO2 Intake & Output 04/02/24 04/03/24 04/03/24 18:59 06:59 18:59 Weight 68.492 kg 68.492 kg Other: # Voids 1 1 - Labs CBC & Chem 7: 04/03/24 03:19 04/03/24 03:19 Labs: Abnormal Lab Results - Last 24 Hours (Table) 04/02/24 04/03/24 04/03/24 Range/Units 21:08 03:19 03:19 RBC 2.96 L (3.80-5.40) m/uL Hgb 9.9 L (11.4-16.0) gm/dL Hct 30.5 L (34.0-46.0) % MCV 103.1 H (80.0-100.0) fL RDW 15.8 H (11.5-15.5) % Lymphocytes # 0.7 L (1.0-4.8) k/uL Potassium 5.3 H (3.5-5.1) mmol/L Chloride 114 H 109 H (98-107) mmol/L Carbon Dioxide 16 L (22-30) mmol/L BUN 31 H 32 H (7-17) mg/dL Glucose 131 H (74-99) mg/dL
--- NOTE | 2024-04-04 08:15 | P.CNNES ---
History of Present Illness Consult date: 04/03/24 Requesting physician: Andreea Hyman Reason for Consult: Altered mental status History of Present Illness: Patient is a 78-year-old female came to the hospital yesterday at 1:29 PM, who was brought to the hospital by her son for leg weakness. Patient states that about 2 weeks ago, she ran into the garage, did not turn the lights on, missed a step and fell and fractured her right shoulder. She came to the hospital and was recommended sling. About couple days after this fall, (1-1/2 weeks ago), she states that there was police at home. She went to get the [employer]. When she turned, instead of whole foot turning, the right foot got caught and she fell, and hurt her right ankle. She states that she lives in a "quad". Patient states her son brought her to the hospital, because her legs were swollen and they were "black and blue". She has weakness in the legs.. Patient states that her has bipolar disorder and also diagnosed with schizophrenia. He sometimes yells, slams doors, that makes her very nervous. The more nervous she gets, the more right arm hurts. Vital signs on arrival blood pressure 148/92, pulse 95 temperature 97.8. Blood test shows normal WBC hemoglobin 10.4 with elevated MCV 104.1. Platelets are normal. INR 1.2. Basic metabolic panel, hepatic panel normal, troponin negative. UA negative. Urine drug screen negative. Influenza, RSV and coronavirus PCR negative. Chest x-ray showed no acute cardiopulmonary process. Age-indeterminate anterior wedge compression deformity of the lower thoracic spine. Correlate with point tenderness. Increased displacement of known right proximal humeral surgical neck fracture. EKG showed atrial fibrillation with rapid ventricular rate. CT head showed no acute intracranial process. Soft tissue subcutaneous gas throughout the head most pronounced on the left. Etiology unclear, no fracture definitely visualized in the [id number]. I reviewed CT head, and agree with the findings. Shoulder x-ray showed persistent fracture at the greater tuberosity and surgical neck of the humerus. Wrist x- ray showed no acute osseous abnormality. Soft tissue swelling right wrist. Orthopedic surgery has seen the patient patient has closed fracture of the right proximal humerus. Review of Systems All pertinent positive and negative review of system mentioned in the HPI. Past Medical History Past Medical History: Atrial Fibrillation, Hyperlipidemia, Hypertension, Thyroid Disorder Additional Past Medical History / Comment(s): SKIN CANCER History of Any Multi-Drug Resistant Organisms: C-DIFF Date of last positivie culture/infection: unsure MDRO Source:: stool Past Surgical History: Hysterectomy Additional Past Surgical History / Comment(s): THYROIDECTOMY PARTIAL, SKIN CANCER REMOVAL Past Anesthesia/Blood Transfusion Reactions: No Reported Reaction Past Psychological History: No Psychological Hx Reported Smoking Status: Former smoker Past Alcohol Use History: Occasional Past Drug Use History: None Reported Medications and Allergies Home Medications Medication Instructions Recorded Confirmed Type Metoprolol Tartrate [Lopressor] 50 mg PO BID 06/13/13 04/02/24 History Ibuprofen [Motrin] 600 mg PO Q8HR PRN 04/02/24 04/02/24 History Levothyroxine Sodium [Synthroid] 88 mcg PO DAILY 04/02/24 04/02/24 History Rivaroxaban [Xarelto] 20 mg PO DAILY 04/02/24 04/02/24 History Spironolactone [Aldactone] 25 mg PO DAILY 04/02/24 04/02/24 History Sertraline [Zoloft] 50 mg PO DAILY 04/03/24 04/03/24 History Sertraline [Zoloft] 100 mg PO DAILY 04/03/24 04/03/24 History Allergies Allergy/AdvReac Type Severity Reaction Status Date / Time banana Allergy Swelling Verified 04/02/24 19:54 Sulfa (Sulfonamide Allergy Swelling Verified 04/02/24 19:54 Antibiotics) Physical Examination - Vital Signs Vital Signs: Vital Signs Temp Pulse Pulse Resp BP BP Pulse Ox 04/03/24 13:23 97.6 F 105 H 16 135/89 93 L 04/03/24 08:04 97.9 F 89 16 121/78 97 04/03/24 02:33 98.2 F 101 H 18 100/65 93 L 04/02/24 20:43 97.9 F 99 16 148/89 95 Intake and Output 04/03/24 04/03/24 04/03/24 06:59 14:59 22:59 Other: # Voids 1 1 3 Patient is an elderly female, who is slightly emotional, but in no acute distress. Patient is alert awake oriented to time place and person. Patient knows it is March 2024 and that she is in [facility] and name of the current president Edel. Speech and language functions are normal. Patient can name and repeat very well. No aphasia or dysarthria. Attention, concentration and fund of knowledge is adequate. On cranial nerve examination, pupils are equal, round and reacting to light, visual culver are full on confrontation, with no neglect on double simultaneous stimulation. Extraocular muscles are intact with no nystagmus. Face is symmetric, tongue protrudes to the midline. Palatal elevation and sensation no rmal, hearing and shoulder shrug normal, facial sensation normal. On muscle strength testing, there is no pronator drift in the left arm, right arm not checked because of humerus fracture. The strength is normal in the left arm distally and proximally. Her right supervisor purification is normal. The strength is normal in the lower limbs, except left hip flexion, which may be 5-, as compared to 5 on the right. Deep tendon reflexes are symmetric to all over and plantars downgoing. Sensory to touch is equal with no neglect on double simultaneous stimulation. Cerebellar function showed no ataxia for [id number] testing with the left upper limb, not checked with the right upper limb. No ataxia for [id number] testing on either side. Tone and bulk of muscles normal. Gait deferred.. On general examination, there is no carotid bruit or murmur, S1-S2 audible. Chest is clear on consultation. Abdomen is soft nontender. No organomegaly, bowel sounds present. Peripheral pulses are present. No peripheral edema. Patient has a big bruise over the left lateral thigh and leg region. Results - Laboratory Findings CBC and BMP: 04/03/24 03:19 04/03/24 03:19 Abnormal Lab Findings: Abnormal Labs 04/02/24 04/02/24 04/02/24 14:32 14:32 14:32 RBC 3.08 L Hgb 10.4 L Hct 32.1 L MCV 104.1 H RDW Lymphocytes # 0.8 L PT 12.9 H INR 1.2 H Potassium Chloride Carbon Dioxide BUN 37 H Glucose Total Bilirubin 1.8 H Urine Protein Urine Mucus 04/02/24 04/02/24 04/03/24 16:15 21:08 03:19 RBC 2.96 L Hgb 9.9 L Hct 30.5 L MCV 103.1 H RDW 15.8 H Lymphocytes # 0.7 L PT INR Potassium 5.3 H Chloride 114 H Carbon Dioxide 16 L BUN 31 H Glucose Total Bilirubin Urine Protein 1+ H Urine Mucus Rare H 04/03/24 03:19 RBC Hgb Hct MCV RDW Lymphocytes # PT INR Potassium Chloride 109 H Carbon Dioxide BUN 32 H Glucose 131 H Total Bilirubin Urine Protein Urine Mucus Assessment and Plan Assessment: * Recent history of accidental falls x 2 * Altered mental status, likely due to metabolic encephalopathy, now seems to have resolved. Her mentation is normal. * Possible depression * Right humeral fracture * Atrial fibrillation with RVR * Macrocytic anemia * Hyperlipidemia * Hypertension * Hypothyroidism Plan: * Patient's mentation appears normal at this time. No evidence of encephalopathy. Patient does appear slightly depressed because of her home situation, with her 's psychiatric condition. * No other neurological workup indicated. * B12 642, TSH 3.55. Folate pending. * Patient being followed up with orthopedic surgery. * Agree with PT, OT. * Neurologically clear. Thank you for the consult.
[2024-04-04] MEDS: SERTRALINE 50 MG TAB PO SCH (08:32)
[2024-04-04] MEDS ORDERED: SERTRALINE 100 MG TAB PO SCH (09:00)
[2024-04-04 09:13] VITALS: RESP 17
--- NOTE | 2024-04-04 12:25 | P.PN ---
Subjective Progress Note Date: 04/04/24 This is a 78-year-old female who is admitted for altered mental status and multiple falls. Orthopedics is following for a right humerus fracture. Patient is seen and evaluated at bedside today. Patient states that her pain is well- controlled. Patient states that she is tolerating her arm sling. Patient states that her pain in the right wrist comes and goes. Patient denies any new complaints today. Objective - Vital Signs Vital signs: Vital Signs Temp 97.8 F 04/04/24 08:28 Pulse 118 H 04/04/24 08:28 Resp 17 04/04/24 08:28 BP 137/83 04/04/24 08:28 Pulse Ox 90 L 04/04/24 08:28 FiO2 Intake & Output 04/03/24 04/04/24 04/04/24 18:59 06:59 18:59 Intake Total 420 Balance 420 Intake: Oral 420 Other: # Voids 3 2 - Exam On exam patient is resting comfortably in bed in no acute distress. Patient is alert and oriented 3. Right upper extremity: Skin is intact. There is ecchymosis present over the right upper arm extending to the hand. There is mild to moderate swelling of the right shoulder. Patient has tenderness to palpation over the right shoulder and over the right wrist. Patient has full motion of the right hand and some discomfort with wrist motion. Radial pulse is 2+. Capillary refill is normal at less than 2 seconds. The right upper extremity is warm and well-perfused. Sensation intact. Neurovascular status and circulatory status are intact. - Labs CBC & Chem 7: 04/03/24 03:19 04/03/24 03:19 Assessment and Plan (1) Closed fracture of right proximal humerus Current Visit: Yes Status: Acute Code(s): S42.201A - UNSP FRACTURE OF UPPER END OF RIGHT HUMERUS, INIT SNOMED Code(s): 38864848 (2) Fall Current Visit: No Status: Acute Code(s): W19.XXXA - UNSPECIFIED FALL, INITIAL ENCOUNTER SNOMED Code(s): 6785479 (3) Sprain of right wrist Current Visit: Yes Status: Acute Code(s): S63.501A - UNSPECIFIED SPRAIN OF RIGHT WRIST, INITIAL ENCOUNTER SNOMED Code(s): 01471887016674119 Plan: 1. Maintain arm sling to the right upper extremity. Ice as needed for swelling. Patient is to remain nonweightbearing to the right upper extremity. 2. Continue pain control. 3. An x-ray report of the right wrist dated 04/03/2024 show: 1. No acute osseous abnormality right wrist 2. Soft tissue swelling right wrist Recommend a right wrist brace for comfort and support. Patient may remove the brace as needed. 4. There is no surgical indication. Continue with conservative management. Patient may follow-up as an outpatient.
--- NOTE | 2024-04-04 12:35 | P.DS ---
Providers Date of admission: 04/02/24 19:36 Expected date of discharge: 04/04/24 Attending physician: Ramy Ybarra Consults: 04/02/24 19:32 Consult Physician Urgent Consulting Provider: Aniket Asif Consult Reason/Comments: Humerus fracture Do you want consulting provider notified?: Yes 04/03/24 06:23 Consult Physician Routine Consulting Provider: Bernardino Ayala Consult Reason/Comments: altered mental status Do you want consulting provider notified?: Yes Primary care physician: [facility] Course: 78-year-old female with of A-fib (on rivaroxaban), hyperlipidemia, hypertension, thyroid disorder here for increased weakness. Patient arrived with her son but is not at bedside during evaluation. She was recently in the emergency room on 03/22 for right humeral fracture. Per staff field engineer, patient's son brought the patient in due to increasing frequency of falls, confusion and weakness. They also reported that is intermittently confused. Patient was able to report that a week ago she fell on her hip and it was unwitnessed but she did not hit her head. She did not seek care at the time as her pain did not have any pain or swelling. Patient was able to mention that she had a right arm injury because she fell and had a fracture. She is still wearing the sling on admission and reports that she is very much in pain that she cannot move the arm. She believes she is here because of generalized weakness. In the ED she underwent extensive evaluation. Chest x-ray on admission showed no acute cardiopulmonary process, age- indeterminate anterior wedge compression deformity of the lower thoracic spine, increased displacement of known right proximal humeral surgical neck fracture. EKG showed atrial fibrillation with a rate of [address]-T changes QTc 400. Brain CT showed no acute intracranial process, soft tissue subcutaneous gas throughout the head was pronounced on the left etiology unclear.. Labs on evaluation showed WBC 8.2, hemoglobin 10.4, MCV 104, platelet count 385,000, PT 12.9, INR 1.2, PTT 25.2, sodium 140, potassium 4.4, chloride 107, bicarb 22, BUN 37, creatinine 0.87, glucose 95, calcium 9.3, total bilirubin 1.8, AST 29, ALT 16, alk phos 90, troponin less than 0.0 12, albumin 4.1. Urinalysis shows +1 protein and rare mucus. UDS negative. Cepheid 4 negative. Vitals on admission temperature 97.8 pulse rate 95 respiratory rate 16 blood pressure 148/92 O2 saturation 98% Patient was admitted for further workup and management. 04/03 Patient was seen and examined. Apparently AO x 4 this morning but got confused after receiving Morphine. Ortho recommends no surgical intervention. CBC and BMP significant for RBC 2.96, Hg 9.9, Hct 30.5, MCV 103.1, Cl 109, BUN 32, glu 131. B12 642. TSH 3.55. 04/04 Patient was seen and examined. Reports right arm pain with movement. Tylenol is helping. Plans for [employer] today. HR in the low 100s, Metoprolol increased to 50 mg PO TID. CBC and BMP significant for RBC 2.96, Hg 9.9, MCV 103.1, Cl 109, BUN 32, glu 131. Vital signs reviewed General: non toxic, mild distress, appears at stated age, Derm: bruising noted on left hip and right arm up to the shoulder from the hands Head: atraumatic, normocephalic, symmetric Eyes: EOMI, anicteric sclera ENT: Nose and ears atraumatic Neck: No cervical lymphadenopathy, trachea midline, supple Mouth: no lip lesion, mucus membranes moist Cardiovascular: S1S2 irreg, no murmur Lungs: CTA bilateral, no rhonchi, no rales, no accessory muscle use Ext: +2 bilateral pitting edema, right arm placed in a sling range of motion limited by pain Neuro: no gross focal neuro deficits Psych: Alert and oriented x 3, appropriate affect and mood Discharge Diagnosis: #. Acute encephalopathy, rule out other causes #. Debility #. A-fib with RVR #. Macrocytic anemia #. Right humeral neck fracture #. Right hip pain This complex discharge took 35 minutes to complete. Patient Condition at Discharge: Stable Plan - Discharge Summary Discharge Rx Participant: Yes New Discharge Prescriptions: New Acetaminophen Tab [Tylenol] 650 mg PO Q6HR PRN tab PRN Reason: Mild Pain Or Fever > 100.5 Continue Metoprolol Tartrate [Lopressor] 50 mg PO BID Rivaroxaban [Xarelto] 20 mg PO DAILY Spironolactone [Aldactone] 25 mg PO DAILY Sertraline [Zoloft] 50 mg PO DAILY Sertraline [Zoloft] 100 mg PO DAILY Levothyroxine Sodium [Synthroid] 88 mcg PO DAILY Ibuprofen [Motrin] 600 mg PO Q8HR PRN PRN Reason: Pain Or Fever > 100.5 Discharge Medication List Metoprolol Tartrate [Lopressor] 50 mg PO BID 06/13/13 [History] Ibuprofen [Motrin] 600 mg PO Q8HR PRN 04/02/24 [History] Levothyroxine Sodium [Synthroid] 88 mcg PO DAILY 04/02/24 [History] Rivaroxaban [Xarelto] 20 mg PO DAILY 04/02/24 [History] Spironolactone [Aldactone] 25 mg PO DAILY 04/02/24 [History] Sertraline [Zoloft] 50 mg PO DAILY 04/03/24 [History] Sertraline [Zoloft] 100 mg PO DAILY 04/03/24 [History] Acetaminophen Tab [Tylenol] 650 mg PO Q6HR PRN tab 04/04/24 [Rx] Follow up Appointment(s)/Referral(s): Bryan Cavazos MD [Primary Care Provider] - 1-2 days Aniket Asif DO [Doctor of Osteopathic Medicine] - 1 Week Activity/Diet/Wound Care/Special Instructions: Maintain arm sling to the right upper extremity. Nonweightbearing to the right upper extremity. Wrist brace for right wrist sprain as needed for comfort and support. May remove as needed. Please follow-up with [facility] and call with any questions or concerns, . Discharge Disposition: TRANSFER TO SNF/ECF
[2024-04-04 15:06] VITALS: BP 119/79; PULSE 90; TEMP 97.4
[2024-04-04] MEDS ORDERED: METOPROLOL TARTRATE 50 MG TAB PO SCH (16:00)
--- NOTE | 2024-04-05 11:07 | P.PN ---
Subjective Progress Note Date: 04/04/24 Patient was seen for a follow-up. Patient complains of being tired. Denies any new neurological symptoms. She states that she did take 2 Tylenol's at 8 AM. No new concerns. Objective - Vital Signs Vital signs: Vital Signs Temp 97.8 F 04/04/24 08:28 Pulse 118 H 04/04/24 08:28 Resp 17 04/04/24 08:28 BP 137/83 04/04/24 08:28 Pulse Ox 90 L 04/04/24 08:28 FiO2 Intake & Output 04/03/24 04/04/24 04/04/24 18:59 06:59 18:59 Intake Total 420 Balance 420 Intake: Oral 420 Other: # Voids 3 2 - Exam Mental status, speech and language functions are normal. Examination is unchanged. - Labs CBC & Chem 7: 04/03/24 03:19 04/03/24 03:19 Labs: Abnormal Lab Results - Last 24 Hours (Table) 04/03/24 Range/Units 03:19 RBC Folate 847 H (280 - 791) ng/mL Assessment and Plan Assessment: * Recent history of accidental falls x 2 * Altered mental status, likely due to metabolic encephalopathy, now seems to have resolved. Her mentation is normal. * Possible depression * Right humeral fracture * Atrial fibrillation with RVR * Macrocytic anemia * Hyperlipidemia * Hypertension * Hypothyroidism Plan: * Patient's mentation appears normal at this time. No evidence of encephalopathy. Patient does appear slightly depressed because of her home situation, with her 's psychiatric condition. * No other neurological workup indicated. * B12 642, TSH 3.55. RBC folate 847, which is normal. * Patient being followed up with orthopedic surgery. * Agree with PT, OT. * Neurologically clear. We will sign off.
== END 2024-04-04 15:42 ==
LOC: EC 13:29 → 4SSUR 19:36
PROVIDERS: ADMIT Student in an Organized Health Care Education/Training Program; ATTEND Student in an Organized Health Care Education/Training Program
DX: G93.40 Encephalopathy, unspecified (principal); I48.91 Unspecified atrial fibrillation; I10 Essential (primary) hypertension; E78.5 Hyperlipidemia, unspecified; E89.0 Postprocedural hypothyroidism; S42.211A Unspecified displaced fracture of surgical neck of right humerus, initial encounter for closed fracture; S63.501A Unspecified sprain of right wrist, initial encounter; W10.9XXA Fall (on) (from) unspecified stairs and steps, initial encounter; D53.9 Nutritional anemia, unspecified; M25.551 Pain in right hip; Z11.52 Encounter for screening for COVID-19; Z85.828 Personal history of other malignant neoplasm of skin; Z87.891 Personal history of nicotine dependence; Z91.81 History of falling; Z79.01 Long term (current) use of anticoagulants; Z79.82 Long term (current) use of aspirin; Z79.890 Hormone replacement therapy; Z79.899 Other long term (current) drug therapy; Z88.2 Allergy status to sulfonamides
CPT/HCPCS: 96374; 99285; 36415; 93005; 97116; 97162; 97530; 97166; 82747; 80053; 80048 ×2; 84443; 82607; 84484; 85025 ×2; 85610; 85730; 81001; 80306; 87636; 73020; 73100; 71046; 70450; G0378 ×3; J2270